=== PATIENT | female | born 1970 | race Caucasian/White ===

== ENCOUNTER 2017-04-27 18:02 | Emergency (ER) | payer MEDICAID, OTHER ==
[2017-04-27 18:11] VITALS: BP 176/86
--- NOTE | 2017-04-27 19:01 | ED Physician Documentation ---
PD HPI HEENT - Stated complaint Stated Complaint: TOOTH PAIN - Chief complaint Chief Complaint: Heent - History obtained from History obtained from: Patient - History of Present Illness Timing - onset: How many weeks ago (about a week ago on Apr 20, had tooth break when chewing, and it is hurting more the past 2 days with some local swelling. Pain up to left side of face now as well.) Timing - duration: Days Timing - details: Gradual onset, Still present Location: Tooth (left upper.) Associated symptoms: Facial swelling. No: Fever, Congestion, Rhinorrhea Recently seen: Not recently seen (she tried to dental appt but soonest was couple of weeks, per patient.) Review of Systems Constitutional: denies: Fever, Chills, Myalgias Throat: reports: Dental pain / toothache. 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 - Present Medications Home Medications: Ambulatory Orders Medication Instructions Recorded Confirmed Naproxen [Aleve] 250 mg PO Q8H PRN 05/28/13 04/26/15 Cephalexin [Keflex] 500 mg PO TID #20 capsule 04/27/17 HYDROcod/ACETAM 5/325 [[place] 5/325] 1 tab PO Q6H PRN #15 tablet 04/27/17 - Allergies Allergies/Adverse Reactions: Allergies Allergy/AdvReac Type Severity Reaction Status Date / Time erythromycin base Allergy Hives Verified 04/27/17 18:11 [Erythromycin Base] Latex, Natural Rubber Allergy Rash Verified 04/27/17 18:11 shellfish derived Allergy Hives Verified 04/27/17 18:11 Sulfa (Sulfonamide Allergy Rash Verified 04/27/17 18:11 Antibiotics) - Social History Does the pt smoke?: No Smoking Status: Never smoker Does the pt drink ETOH?: Yes Does the pt have substance abuse?: No PD ED PE NORMAL - Vitals Vital signs reviewed: Yes - General General: Alert and oriented X 3, No acute distress, Well developed/nourished - HEENT HEENT: No: Dentition benign (left upper 2nd molar with back portion of tooth broken and prior filling missing, leaving a cup shaped cavity to the rear of it. Cavit applied in there. There is some mild swelling and tenderness of the gum. No fluctuance. ) - Neck Neck: Supple, no meningeal sign, No adenopathy - Cardiac Cardiac: RRR, No murmur - Respiratory Respiratory: Clear bilaterally Results - Vitals Vitals: Oxygen O2 Source Room air PD MEDICAL DECISION MAKING - ED course Complexity details: considered differential (could put some Cavit in the broken tooth part. Rx with meds for inflammation and early infection. ), d/w patient Departure - Departure Disposition: 01 Home, Self Care Clinical Impression: Pain, dental Broken tooth Qualifiers: Encounter type: initial encounter Fracture type: open Qualified Code(s): S02.5XXB - Fracture of tooth (traumatic), initial encounter for open fracture Condition: Stable Record reviewed to determine appropriate education?: Yes Instructions: ED Tooth Pain Prescriptions: Cephalexin [Keflex] 500 mg PO TID #20 capsule HYDROcod/ACETAM 5/325 [[place] 5/325] 1 tab PO Q6H PRN #15 tablet PRN Reason: Pain Comments: He is a temporary filling to fill the hole in the tooth to provide some comfort. Use an anti-inflammatory such as naproxen or ibuprofen twice daily. Add Tylenol or hydrocodone if needed for pain. Cephalexin antibiotic 3 times a day for a week for likely early infection. Follow-up with a dentist at the soonest appointment she can get with one. Discharge Date/Time: 04/27/17 19:39
[2017-04-27] MEDS ORDERED: HYDROcod/ACETAM 5/325 MG TABLET PO STA (19:23)
[2017-04-27] MEDS ORDERED: cephALEXin 250 MG CAPSULE PO STA (19:23)
== END 2017-04-27 19:39 | disposition home or self-care (01) ==
LOC: ED 18:02
DX: K08.89 Other specified disorders of teeth and supporting structures (principal); S02.5XXB Fracture of tooth (traumatic), initial encounter for open fracture; X58.XXXA Exposure to other specified factors, initial encounter
CPT/HCPCS: 99283; A9270

== ENCOUNTER 2018-06-26 05:45 | Emergency (ER) | payer MEDICAID ==
[2018-06-26] MEDS ORDERED: diazePAM 5 MG TABLET PO STA (06:07)
--- NOTE | 2018-06-26 06:16 | ED Physician Documentation ---
History of Present Illness - Stated complaint Stated Complaint: L SHOULDER/RIB PAIN - Chief complaint Chief Complaint: General - Additonal information Additional information: 48-year-old female presents the emergency department with left rib pain which has progressively worsened over the past several days. The patient reports pain with deep inspiration and reports not been able to take a deep breath and feeling short of breath due to the pain. The patient reports the pain is a spasm-like pain. No recent trauma or injury. No dyspnea on exertion or chest pain. No peripheral edema. The pain does radiate into her neck. Symptoms are described as moderate. The patient gets some improvement with Motrin. 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 - Present Medications Home Medications: Ambulatory Orders Medication Instructions Recorded Confirmed Naproxen [Aleve] 250 mg PO Q8H PRN 05/28/13 04/26/15 Cephalexin [Keflex] 500 mg PO TID #20 capsule 04/27/17 HYDROcod/ACETAM 5/325 [[place] 5/325] 1 tab PO Q6H PRN #15 tablet 04/27/17 diazePAM [Valium] 5 mg PO TID PRN #15 tablet 06/26/18 - Allergies Allergies/Adverse Reactions: Allergies Allergy/AdvReac Type Severity Reaction Status Date / Time erythromycin base Allergy Hives Verified 04/27/17 18:11 [Erythromycin Base] Latex, Natural Rubber Allergy Rash Verified 04/27/17 18:11 shellfish derived Allergy Hives Verified 04/27/17 18:11 Sulfa (Sulfonamide Allergy Rash Verified 04/27/17 18:11 Antibiotics) - Social History Does the pt smoke?: No Smoking Status: Never smoker Does the pt drink ETOH?: Yes Does the pt have substance abuse?: No PD ED PE NORMAL - General General: Alert and oriented X 3, No acute distress - HEENT HEENT: Atraumatic, PERRL, EOMI, Ears normal - Cardiac Cardiac: RRR, Strong equal pulses - Respiratory Respiratory: No respiratory distress, Clear bilaterally - Derm Derm: Normal color - Extremities Extremities: No deformity, Normal ROM s pain, No edema - Neuro Neuro: Alert and oriented X 3, Normal speech - Psych Psych: Normal affect PD ED PE EXPANDED - Back Back visual: 1 - tenderness (Tenderness palpation, no crepitus, no subcutaneous emphysema) Results - Vitals Vitals: Vital Signs - 24 hr 06/26/18 05:49 Temperature 36.3 C L Heart Rate 97 Respiratory 18 Rate Blood Pressure 141/90 H O2 Saturation 98 Oxygen O2 Source Room air - EKG (time done) No standard instances Rhythm: NSR [place]: Normal Intervals: Normal [place], QRS normal QRS: Normal Ischemia: Normal ST segments - Labs Labs: Laboratory Tests 06/26/18 06/26/18 06/26/18 06:15 06:15 06:15 WBC 7.4 RBC 4.68 Hgb 12.9 Hct 36.8 L MCV 78.6 L MCH 27.6 MCHC 35.1 RDW 15.2 H Plt Count 334 MPV 6.9 L Neut # (Auto) 4.1 Lymph # (Auto) 2.2 [place] # (Auto) 0.7 Eos # (Auto) 0.4 Baso # (Auto) 0.0 Absolute Nucleated RBC 0.00 Nucleated RBC % 0.0 D-Dimer < 200.0 L Sodium 140 Potassium 4.0 Chloride 107 Carbon Dioxide 23 Anion Gap 10.0 BUN 17 Creatinine 0.7 Estimated GFR (MDRD) 90 Glucose 111 H Calcium 8.8 Total Bilirubin 0.2 AST 22 ALT 16 Alkaline Phosphatase 97 Troponin I Total Protein 7.1 Albumin 3.6 Globulin 3.5 Albumin/Globulin Ratio 1.0 Lipase 59 H 06/26/18 06:15 WBC RBC Hgb Hct MCV MCH MCHC RDW Plt Count MPV Neut # (Auto) Lymph # (Auto) [place] # (Auto) Eos # (Auto) Baso # (Auto) Absolute Nucleated RBC Nucleated RBC % D-Dimer Sodium Potassium Chloride Carbon Dioxide Anion Gap BUN Creatinine Estimated GFR (MDRD) Glucose Calcium Total Bilirubin AST ALT Alkaline Phosphatase Troponin I < 0.04 Total Protein Albumin Globulin Albumin/Globulin Ratio Lipase - Rads (name of study) CXR Radiology: Final report received, See rad report PD MEDICAL DECISION MAKING - ED course ED course: The patient's symptoms seem to be secondary to a musculoskeletal etiology. The patient's workup does not reveal any significant abnormality and currently the patient appears appropriate for discharge and ongoing outpatient management. I discussed outpatient physical therapy to help manage her symptoms. I discussed the possibility of an outpatient MRI if her symptoms are not improving. The patient will return to the emergency department immediately for any worse Departure - Departure Disposition: 01 Home, Self Care Clinical Impression: Strain of muscle of torso Qualifiers: Encounter type: initial encounter Qualified Code(s): S29.019A - Strain of muscle and tendon of unspecified wall of thorax, initial encounter Condition: Good Instructions: ED Strain Muscle Ext Prescriptions: diazePAM [Valium] 5 mg PO TID PRN #15 tablet PRN Reason: Spasms Comments: Please follow-up with primary care for recheck and reevaluation Please return to the emergency department for any worsening or any concerns
[2018-06-26 06:26] LABS: BASOPHILS % (AUTO) 0.4 %; EOSINOPHILS # (AUTO) 0.4 10^3/uL (0.0-0.7); EOSINOPHILS % (AUTO) 5.1 %; HGB - HEMOGLOBIN 12.9 g/dL (12.0-16.0); LYMPHOCYTES # (AUTO) 2.2 10^3/uL (1.5-3.5); LYMPHOCYTES % (AUTO) 29.9 %; MEAN CORPUSCULAR HEMOGLOBIN 27.6 pg (27.0-31.0); MEAN CORPUSCULAR HGB CONC 35.1 g/dL (32.0-36.0); MEAN CORPUSCULAR VOLUME 78.6 fL (81.0-99.0); MEAN PLATELET VOLUME 6.9 fL (7.9-10.8); MONOCYTES # (AUTO) 0.7 10^3/uL (0.0-1.0); MONOCYTES % (AUTO) 9.4 %; NEUTROPHILS # (AUTO) 4.1 10^3/uL (1.5-6.6); NEUTROPHILS % (AUTO) 55.2 %; PLT - PLATELET COUNT 334 10^3/uL (130-450); RED BLOOD COUNT 4.68 10^6/uL (4.20-5.40); RED CELL DISTRIBUTION WIDTH 15.2 % (12.0-15.0); WHITE BLOOD COUNT 7.4 x10^3/uL (4.8-10.8)
[2018-06-26 06:38] LABS: ALBUMIN 3.6 g/dL (3.2-5.5); BILIRUBIN,TOTAL 0.2 mg/dL (0.2-1.0); CALCIUM 8.8 mg/dL (8.5-10.3); CREATININE 0.7 mg/dL (0.4-1.0); TOTAL PROTEIN 7.1 g/dL (6.7-8.2)
--- NOTE | 2018-06-26 06:43 | XRAY Report ---
Reason: rib pain, Pain with deep inspiration Procedure Date: 06/26/2018 Accession Number: [id number] / [id number] Procedure: XR - Chest 2 View X-Ray CPT Code: 58309 FULL RESULT: EXAM: CHEST RADIOGRAPHY EXAM DATE: 06/26/2018 06:34 AM. CLINICAL HISTORY: Rib pain, Pain with deep inspiration. COMPARISON: XR CHEST PA AND LAT 07/21/2012 12:21 PM. TECHNIQUE: 2 views. FINDINGS: Lungs/Pleura: Minimal linear atelectasis at the left base. No focal infiltrate, effusion, or pneumothorax. Mediastinum: Heart and mediastinal contours are unremarkable. Other: None. IMPRESSION: Minimal left basilar atelectasis. RADIA
[2018-06-26] MEDS ORDERED: HYDROcod/ACETAM 5/325 MG TABLET PO STA (07:13)
[2018-06-26 07:29] VITALS: BP 155/110
== END 2018-06-26 07:30 | disposition home or self-care (01) ==
LOC: ED 05:45
DX: S29.019A Strain of muscle and tendon of unspecified wall of thorax, initial encounter (principal)
CPT/HCPCS: 36415; 71046; 80053; 83690; 84484; 85025; 85379; 93005; 99283; 99284; A9270

== ENCOUNTER 2019-01-09 08:42 | Outpatient (CLI) | payer MEDICAID | END 2019-01-09 08:43 | disposition critical access hospital (66) | LOC: EMS 08:42 | PROVIDERS: ATTEND Surgery | DX: M25.571 Pain in right ankle and joints of right foot (principal); S09.90XA Unspecified injury of head, initial encounter; M54.2 Cervicalgia; M25.551 Pain in right hip; W18.39XA Other fall on same level, initial encounter; W22.8XXA Striking against or struck by other objects, initial encounter; Y92.008 Other place in unspecified non-institutional (private) residence as the place of occurrence of the external cause | CPT/HCPCS: A0425; A0427; A0999 ==

== ENCOUNTER 2019-01-09 08:55 | Emergency (ER) | payer MEDICAID ==
[2019-01-09] MEDS ORDERED: MORPHINE 2 MG/ML CARPUJECT IM STA (09:07)
--- NOTE | 2019-01-09 09:10 | ED Physician Documentation ---
History of Present Illness - Stated complaint Stated Complaint: GLF - Chief complaint Chief Complaint: Trauma Hd/Nk - History obtained from History obtained from: Patient, EMS - History of Present Illness Timing: Today, How many hours ago (1) Pain level max: 8 Pain level now: 8 - Additonal information Additional information: 48-year-old female states she was walking on the stairs when she slipped and fell injuring her right ankle, right lower leg on her right foot as well as her head, face and neck. She is placed in a c-collar and backboarded by EMS. Brought here for evaluation. No loss of consciousness. No vomiting. No numbness or tingling. No loss of bowel or bladder control. 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 - Present Medications Home Medications: Ambulatory Orders Medication Instructions Recorded Confirmed Naproxen [Aleve] 250 mg PO Q8H PRN 05/28/13 04/26/15 Cephalexin [Keflex] 500 mg PO TID #20 capsule 04/27/17 HYDROcod/ACETAM 5/325 [[place] 5/325] 1 tab PO Q6H PRN #15 tablet 04/27/17 diazePAM [Valium] 5 mg PO TID PRN #15 tablet 06/26/18 Hydrocodone/Acetaminophen 1 - 2 each PO Q6H PRN #14 tablet 01/09/19 [Hydrocodon-Acetaminophen 5-325] Ibuprofen [Motrin] 800 mg PO Q8H PRN #30 tablet 01/09/19 - Allergies Allergies/Adverse Reactions: Allergies Allergy/AdvReac Type Severity Reaction Status Date / Time erythromycin base Allergy Hives Verified 01/09/19 09:08 [Erythromycin Base] Latex, Natural Rubber Allergy Rash Verified 01/09/19 09:08 shellfish derived Allergy Hives Verified 01/09/19 09:08 Sulfa (Sulfonamide Allergy Rash Verified 01/09/19 09:08 Antibiotics) - Social History Does the pt smoke?: No Smoking Status: Never smoker Does the pt drink ETOH?: Yes Does the pt have substance abuse?: No PD ED PE NORMAL - Vitals Vital signs reviewed: Yes - General General: Alert and oriented X 3, No acute distress - HEENT HEENT: Atraumatic (No scalp hematomas. No palpable skull fractures), PERRL, Moist mucous membranes, Other (dried blood of face. TTP over the bridge of the nose. No septal hematoma. Diffuse facial bone tenderness.) - Neck Neck: Supple, no meningeal sign, Other (Mild midline tenderness palpation. No step-off or deformity.) - Cardiac Cardiac: RRR - Respiratory Respiratory: No respiratory distress, Clear bilaterally - Abdomen Abdomen: Soft, Non tender, Non distended - Back Back: No spinal TTP (No midline tenderness to palpation. No step-off or deformity) - Derm Derm: Warm and dry - Extremities Extremities: Other (Tender to palpation over the dorsum of the right foot as well as the lateral malleolus of the right ankle. Also tenderness over the proximal right fibula. Neurovascularly intact. 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, No motor deficit, No sensory deficit Eye Opening: Spontaneous Motor: Obeys Commands Verbal: Oriented GCS Score: 15 - Psych Psych: Normal mood, Normal affect Results - Vitals Vitals: Vital Signs - 24 hr 01/09/19 01/09/19 01/09/19 09:04 09:52 10:28 Temperature 36.6 C Heart Rate 93 91 92 Respiratory 18 18 18 Rate Blood Pressure 141/85 H 145/86 H 140/88 H O2 Saturation 99 98 01/09/19 11:05 Temperature Heart Rate 89 Respiratory 16 Rate Blood Pressure 130/75 O2 Saturation 98 Oxygen O2 Source Room air - Rads (name of study) head CT Radiology: Prelim report reviewed, EMP read contemporaneously, See rad report (no acute abnormality) cervical spine CT Radiology: Prelim report reviewed, EMP read contemporaneously, See rad report (no acute abnormality) maxillofacial CT Radiology: Prelim report reviewed, EMP read contemporaneously, See rad report (no acute abnormality) R tib/fib xray Radiology: Prelim report reviewed, EMP read contemporaneously, See rad report (no acute abnormality) R ankle xray Radiology: Prelim report reviewed, EMP read contemporaneously, See rad report (no acute abnormality) R foot xray Radiology: Prelim report reviewed, EMP read contemporaneously, See rad report (no acute abnormality) PD MEDICAL DECISION MAKING - ED course Complexity details: reviewed results, re-evaluated patient, considered differential, d/w patient ED course: No acute findings on head CT, cervical spine CT, maxillofacial CT, x-rays of the foot ankle and tib-fib on the right. Appears to have an ankle sprain. She declines the use of crutches. Will place on pain medication for home. Placed in air splint for comfort. Patient counseled regarding signs and symptoms for which I believe and urgent re-evaluation would be necessary. Patient with good understanding of and agreement to plan and is comfortable going home at this time This document was made in part using voice recognition software. While efforts are made to proofread this document, sound alike and grammatical errors may occ ur. Departure - Departure Disposition: 01 Home, Self Care Clinical Impression: Right ankle sprain Qualifiers: Encounter type: initial encounter Involved ligament of ankle: unspecified ligament Qualified Code(s): S93.401A - Sprain of unspecified ligament of right ankle, initial encounter Fall Qualifiers: Encounter type: initial encounter Qualified Code(s): W19.XXXA - Unspecified fall, initial encounter Closed head injury Qualifiers: Encounter type: initial encounter Qualified Code(s): S09.90XA - Unspecified injury of head, initial encounter Condition: Good Instructions: ED Sprain Ankle W X Ray, ED Head Injury Closed Follow-Up: your,doctor in 1 week [Other] Prescriptions: Hydrocodone/Acetaminophen [Hydrocodon-Acetaminophen 5-325] 1 - 2 each PO Q6H PRN #14 tablet PRN Reason: pain Ibuprofen [Motrin] 800 mg PO Q8H PRN #30 tablet PRN Reason: PAIN &/OR FEVER Comments: Return if you worsen. Use your medications as prescribed. Your x-rays do not show any acute abnormalities. Do not drink alcohol or drive while on narcotic pain medicine. Note that many narcotic pain relievers also contain tylenol/acetaminophen. Please ensure that your total dose of acetaminophen from all sources does not exceed 3 grams (3000mg) per day. You may constipated on this medication, take a stool softener such as "Colace" twice a day while you are on it. Also recommend a ayce-asv-mxtwimw laxative such as senna or MiraLAX any day that you do not have a bowel movement. If you received narcotic pain medication in the emergency department, do not drive or operate machinery for the next 24 hours. Discharge Date/Time: 01/09/19 11:13
--- NOTE | 2019-01-09 09:58 | XRAY Report ---
Reason: R foot pain s/p fall Procedure Date: 01/09/2019 Accession Number: [id number] / [id number] Procedure: XR - Foot 3 View RT CPT Code: FULL RESULT: EXAM: RIGHT FOOT RADIOGRAPHY EXAM DATE: 01/09/2019 09:43 AM. CLINICAL HISTORY: Right foot pain. COMPARISON: FOOT 3 VIEW LT 12/29/2012 5:44 PM. TECHNIQUE: 3 views. FINDINGS: Bones: Normal. No fractures or bone lesions. Joints: Normal. No subluxations. Soft Tissues: Mild soft tissue swelling is seen in the mid foot region. IMPRESSION: No acute osseous abnormality. RADIA
--- NOTE | 2019-01-09 10:00 | XRAY Report ---
Reason: R ankle pain s/p fall Procedure Date: 01/09/2019 Accession Number: [id number] / [id number] Procedure: XR - Ankle 3 View RT CPT Code: FULL RESULT: EXAM: RIGHT ANKLE RADIOGRAPHY EXAM DATE: 01/09/2019 09:43 AM. CLINICAL HISTORY: Right ankle pain. COMPARISON: None. TECHNIQUE: 3 views. FINDINGS: Bones: Normal. No fractures or bone lesions. Joints: Normal. No effusion. No subluxations. The ankle mortise is normally aligned. Soft Tissues: Normal. No soft tissue swelling. IMPRESSION: Normal ankle radiography. RADIA
--- NOTE | 2019-01-09 10:02 | XRAY Report ---
Reason: R prox fib pain s/p fall Procedure Date: 01/09/2019 Accession Number: [id number] / [id number] Procedure: XR - Tib/Fib RT CPT Code: FULL RESULT: EXAM: RIGHT TIBIA/FIBULA RADIOGRAPHY EXAM DATE: 01/09/2019 09:43 AM. CLINICAL HISTORY: Right leg pain. COMPARISON: None. TECHNIQUE: 2 views. FINDINGS: Bones: Normal. No fracture or bone lesion. Joints: The visualized knee and ankle joints are normal. No effusions. Soft Tissues: Normal. No soft tissue swelling. IMPRESSION: Normal tibia/fibula radiography. RADIA
--- NOTE | 2019-01-09 10:11 | CT Report ---
Reason: neck pain s/p facll Procedure Date: 01/09/2019 Accession Number: [id number] / [id number] Procedure: CT - CERVICAL SPINE WO CPT Code: FULL RESULT: EXAM: CT CERVICAL SPINE WITHOUT CONTRAST DATE: 01/09/2019 09:50 AM. HISTORY: Acute pain due to trauma. COMPARISONS: FACIAL BONES W/O 01/09/2019 9:42 AM. TECHNIQUE: Thin-section axial images were acquired of the cervical spine without contrast. Post-processing: Coronal and sagittal reformats. Other: None. In accordance with CT protocol optimization, one or more of the following dose reduction techniques were utilized for this exam: automated exposure control, adjustment of mA and/or KV based on patient size, or use of iterative reconstructive technique. FINDINGS: Alignment: No scoliosis or spondylolisthesis. Bones: There is diffuse relatively homogeneous increased sclerosis of the bones. No discrete bone lesion or fracture is identified. Interspace Levels/Facets: There is mild diffuse degenerative disk and facet disease seen throughout the mid and lower aspects of the cervical spine. The bony central canal appears relatively patent. Musculature: Normal. No fatty atrophy. Other: The paravertebral and prevertebral soft tissues are unremarkable. The lung apices are clear. IMPRESSION: 1. No acute osseous abnormality demonstrated. 2. Abnormal bone mineralization pattern demonstrating relatively homogeneous increased sclerosis throughout the bones. Differential consideration includes metabolic/endocrine disorder or marrow dysplasia. RADIA
--- NOTE | 2019-01-09 10:14 | CT Report ---
Reason: facial bone tenderness and pain s/p fall Procedure Date: 01/09/2019 Accession Number: [id number] / [id number] Procedure: CT - MAXILLOFACIAL WO CPT Code: FULL RESULT: EXAM: CT MAXILLOFACIAL WITHOUT CONTRAST EXAM DATE: 01/09/2019 09:50 AM. CLINICAL HISTORY: Facial bone tenderness and pain s/p fall. COMPARISONS: None. TECHNIQUE: Thin-section axial images were acquired of the face without contrast. Post-processing: Coronal and sagittal reformats. Other: None. In accordance with CT protocol optimization, one or more of the following dose reduction techniques were utilized for this exam: automated exposure control, adjustment of mA and/or KV based on patient size, or use of iterative reconstructive technique. FINDINGS: Soft Tissue: The infratemporal fossa and parapharyngeal spaces are unremarkable. Orbits: Symmetric and unremarkable. Bones: No fracture identified. There is diffuse hyperdense bone marrow in the visualized maxillofacial bones and skull base with diffuse cortical thickening in the mandible. Temporomandibular Joints: The temporomandibular joints are symmetric and normally located. Sinuses: No mucosal thickening or fluid levels. Other: None. IMPRESSION: 1. Negative for fracture, dislocation or hematoma. 2. Diffuse hyperdense bone marrow in the visualized maxillofacial bones and skull base and diffuse cortical thickening in the mandible, suggesting nonspecific diffuse osteosclerosis. RADIA
--- NOTE | 2019-01-09 10:25 | CT Report ---
Reason: head pain pain s/p fall Procedure Date: 01/09/2019 Accession Number: [id number] / [id number] Procedure: CT - HEAD WO CPT Code: FULL RESULT: EXAM: CT HEAD EXAM DATE: 01/09/2019 09:50 AM. CLINICAL HISTORY: Head pain s/p fall. COMPARISON: None. TECHNIQUE: Multiaxial CT images were obtained from the foramen magnum to the vertex. Reformats: Sagittal and coronal. IV contrast: None. In accordance with CT protocol optimization, one or more of the following dose reduction techniques were utilized for this exam: automated exposure control, adjustment of mA and/or KV based on patient size, or use of iterative reconstructive technique. FINDINGS: Parenchyma: Overall garcia-white matter differentiation is preserved. No intracranial hemorrhage demonstrated. No evidence of mass or mass-effect. Extraaxial Spaces: Within normal limits. No subdural or epidural collections identified. Ventricles: Size and position are within normal limits. Basal cisterns are patent. Sinuses and Orbits: There is mild mucoperiosteal thickening in scattered ethmoid air cells. The visualized portions of the remaining paranasal sinuses and mastoid air cells are clear. Orbits are unremarkable. Bones: There is diffusely increased density and apparent thickening of the calvarium as well as the facial bones. No acute calvarial fracture is demonstrated. Other: None. IMPRESSION: 1. No acute intracranial abnormality. 2. Diffusely sclerotic appearance and thickening of the calvarium and facial bones. Differential diagnosis is broad and includes hematologic conditions (such as myelofibrosis), metabolic abnormalities, or congenital abnormalities (such as osteopetrosis). RADIA
[2019-01-09] MEDS ORDERED: HYDROcod/ACETAM 5/325 MG TABLET PO STA (10:46)
[2019-01-09 11:06] VITALS: BP 130/75
== END 2019-01-09 11:13 | disposition home or self-care (01) ==
LOC: EDUNIT# → ED 08:55
DX: S93.401A Sprain of unspecified ligament of right ankle, initial encounter (principal); S09.90XA Unspecified injury of head, initial encounter; S09.93XA Unspecified injury of face, initial encounter; M54.2 Cervicalgia; M79.661 Pain in right lower leg; M79.671 Pain in right foot; W10.9XXA Fall (on) (from) unspecified stairs and steps, initial encounter; Y93.01 Activity, walking, marching and hiking
CPT/HCPCS: 70450; 70486; 72125; 73590; 73610; 73630; 96374; 99284; A9270